=== PATIENT | male | born 1945 ===

== ENCOUNTER → 2019-05-08 08:47 | Outpatient (CLI) | payer MEDICARE, BC ==
--- NOTE | 2019-05-12 13:29 | EC ---
PATIENT:VIGNESH COBOS DATE OF SERVICE: 05/08/19 SEX: M MEDICAL RECORD: [id number] DATE OF : 43 LOCATION:[facility] AGE OF PATIENT: 74 ADMISSION DATE: 05/08/19 REFERRING PHYSICIAN: INTERPRETING PHYSICIAN: KELECHI CORTEZ MD ECHOCARDIOGRAM REPORT ECHO CHARGES 4 ECHO COMPLETE Date: 05/08/19 CLINICAL DIAGNOSIS: HEART MURMUR ECHOCARDIOGRAPHIC MEASUREMENTS (adult normal given) AC root (d.<3.7cm) 4.1 cm LV Septum d (<1.2 cm> 1.8 cm Valve Excursion 2.3 cm LV Septum (systole) 2.1 cm Left Atria (s.<4.0cm> 5.4 cm LVPW d(<1.2cm) 1.9 cm RV (d.<2.3cm) 4.5 cm LVPW (sytole) 2.1 cm LV diastole(<5.6CM) 5.0 cm MV E-F(>70mm/sec) cm LV systole 3.0 cm LVOT Diameter 2.4 cm MV exc.(>10mm) 2.1 cm Est.ejection fraction (50-75%) % DOPPLER: LVIT cm/sec A 47.0 cm/sec E 68.0 cm/sec LA cm/sec RVSP 37 mmHg LVOT 126 cm/sec AOP1/2T m/s Asc. Ao 156 cm/sec RVOT 107 cm/sec RA cm/sec PA 131 cm/sec AV Gradient Peak 9.79 mmHg AV Mean 5.35 mmHg AV Area 3.7 cm MV Gradient Peak 3.30 mmHg MV Mean 0.85 mmHg MV Area cm COMMENTS: Machinist: 2 SHAKA TIERNEY Assurance Manager Insurance: 3 Dr. Miranda TAPE# PACS Pericardial Effusion N DATE OF SERVICE: Adequate 2D, color flow, spectral Doppler, and M-mode. LVH is present. LV internal dimension is normal. Wall motion is normal. EF is greater than or equal to 55%. Aortic valve is tricuspid. No evidence of stenosis by Doppler interrogation. Left atrium is dilated at 5.4 cm. Mitral valve shows no prolapse. Mild MR. Right-sided chambers grossly normal. Awwt-nb-ndcvtend TR by color flow imaging. TRANSINT:[id number] Voice Confirmation ID: [id number] DOCUMENT ID: [id number] ECHOCARDIOGRAM REPORT [id number] VIGNESH COBOS,KELECHI Salazar MD at 1329 CC: [id number] DICTATION DATE: 05/08/19 1350 RN MANAGER: 05/08/19 1411 DEP CLI 05/08/19 [place] [id number] [place] [id number]
== END | disposition home or self-care (01) ==
LOC: D.HCCECHO 08:47
PROVIDERS: ATTEND Internal Medicine Interventional Cardiology
DX: R01.1 Cardiac murmur, unspecified (principal)